=== PATIENT | male | born 1945 | race Hispanic/Latino ===

== ENCOUNTER 2017-01-29 11:49 | Day surgery (SDC) | payer MEDICARE, OTHER ==
[2017-01-24 13:40] VITALS: BMI 30.4
[2017-01-29] MEDS ORDERED: Propofol 10 mg/ml Inj (20 ML) ONE (13:34)
[2017-01-29] MEDS ORDERED: Lidocaine 2% Inj (20ml) ONE (13:35)
[2017-01-29] MEDS ORDERED: Sodium Chloride 0.9% 1,000 ML IV SCH (14:15)
[2017-01-29 15:53] VITALS: BP 111/65; PULSE 50; RESP 16; TEMP 98; O2SAT 96
== END 2017-01-29 15:49 | disposition home or self-care (01) ==
LOC: ENDO 11:49
PROVIDERS: ATTEND Internal Medicine Gastroenterology
DX: D50.9 Iron deficiency anemia, unspecified (principal); K44.9 Diaphragmatic hernia without obstruction or gangrene; K29.50 Unspecified chronic gastritis without bleeding; I10 Essential (primary) hypertension; K31.9 Disease of stomach and duodenum, unspecified
CPT/HCPCS: 43239; 88305; 88342; J2704; J7040 ×2